=== PATIENT | female | born 1970 | race Caucasian/White ===

== ENCOUNTER 2016-07-02 09:18 | Emergency (ER) | payer OTHER ==
[2016-07-02] MEDS ORDERED: HYDROmorphone 1 MG/ML SYRINGE IVP STA (10:09)
[2016-07-02] MEDS ORDERED: KETOROLAC 60 MG/2 ML VIAL IVP STA (10:09)
[2016-07-02] MEDS ORDERED: ONDANSETRON 4 MG/2 ML VIAL IVP STA (10:09)
[2016-07-02] MEDS ORDERED: SODIUM CHLORIDE 0.9% 1,000 ML IV ONE (10:09)
[2016-07-02] MEDS ORDERED: KETOROLAC 30 MG/ML VIAL ONE (10:13)
[2016-07-02] MEDS ORDERED: HYDROmorphone 1 MG/ML SYRINGE ONE (10:13)
[2016-07-02] MEDS ORDERED: ONDANSETRON 4 MG/2 ML VIAL ONE (10:13)
== END 2016-07-02 13:20 | disposition home or self-care (01) ==
DX: R10.31 Right lower quadrant pain (principal)
CPT/HCPCS: 36415; 74176; 80053; 81003; 81025; 83690; 85025; 96361; 96374; 96375; 99284; J1170